=== PATIENT | male | born 1985 | race Caucasian/White ===

== ENCOUNTER 2021-08-06 10:38 | Emergency (ER) | payer OTHER, SELFPAY ==
--- NOTE | ~2021-08-06 | XR_ITS ---
EXAMINATION: XR chest 2V EXAM DATE: 08/06/2021 12:21 INDICATION: Hypoglycemia, Diabetes Type I . TECHNIQUE: Frontal and lateral projections of the chest obtained and reviewed. Comparison is made to prior examination from 08/06/2021. FINDINGS: The lungs are clear. There are no pleural effusions. The cardiomediastinal silhouette is within normal limits. There is no pneumothorax suspected. The bones and soft tissues are unremarkab le. IMPRESSION: No acute cardiopulmonary findings. Reviewed, dictated and finalized at location A.
[2021-08-06 10:38] VITALS: BP 179/95; PULSE 68; RESP 18; TEMP 37; O2SAT 100
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
[2021-08-06 11:50] LABS: Basophils Absolute Auto 0.1 K/mm3 (0.0-0.1); Basophils Percent Auto 0.5 % (0.2-1.2); Eosinophils Absolute Auto 0.2 K/mm3 (0-0.3); Eosinophils Percent Auto 0.8 % (0-4.4); Hematocrit 47.3 % (42.0-52.0); Hemoglobin 16.2 g/dL (14.0-18.0); Immature Granulocyte Absolute 0.14 K/mm3 (0.00-0.031); Immature Granulocyte Percent A 0.7 % (0-0.5); Lymphocytes Absolute Auto 2.36 K/mm3 (0.9-3.2); Lymphocytes Percent Auto 12.2 % (18.3-44.2); Mean Corpuscular HGB Conc 34.2 g/dl (32-36); Mean Corpuscular Hemoglobin 30.7 pg (26-34); Mean Corpuscular Volume 89.6 fl (80-100); Mean Platelet Volume 9.6 fl (7.4-10.4); Neutrophils Absolute Auto 15.6 K/mm3 (1.3-6.7); Neutrophils Percent Auto 80.8 % (45.5-73.1); Platelet Count Result 315 k/mm3 (150-375); Red Blood Count 5.28 M/mm3 (4.6-6.20); Red Cell Distribution Width 13.6 % (11.5-14.5); White Blood Count 19.3 K/mm3 (4.5-10.0)
[2021-08-06 11:51] LABS: Add Urine Microscopic? YES; Appearance Urine Clear (Clear); Bilirubin Urine Negative (Negative); Blood Urine Negative (Negative); Color Urine Yellow (Yellow); Glucose Urine UA 3+ mg/dL (Negative); Ketones Urine Negative (Negative); Leukocyte Esterase Ur Negative LEU/UL (Negative); Mucus Urine Rare /lpf; Nitrate Urine Negative (Negative); Protein Urine Negative (Negative); RBC Urine 0-2 /hpf (0-2); Specific Grav Ur 1.015 (1.001-1.035); Squamous Epithelial Cell Urine Rare /hpf (Few); Urobilinogen Urine Negative mg/dL (<2.0); WBC Urine 0-3 /hpf
[2021-08-06 12:07] LABS: Anion Gap 5 mmol/L (8-16); Blood Urea Nitrogen 6 mg/dL (9-20); Calcium 8.3 mg/dL (8.4-10.2); Carbon Dioxide 31 mmol/L (22-30); Chloride 103 mmol/L (98-107); Estimated CRCL calculation 116 ml/min; Estimated Glomerular Filt Rate > 60; Glucose 233 mg/dL (65-110); Potassium 3.7 mmol/L (3.4-5.0); Sodium 139 mmol/L (137-145)
[2021-08-06 15:20] VITALS: BP 128/74; PULSE 68; RESP 18; O2SAT 100
== END 2021-08-06 15:10 | disposition home or self-care (01) ==
PROVIDERS: Emergency Provider Emergency Medicine
DX: E11.649 Type 2 diabetes mellitus with hypoglycemia without coma (principal)
CPT/HCPCS: 36415; 71046; 80048; 81001; 85025; 99283

== ENCOUNTER 2021-09-08 10:38 | Observation (INO) | payer OTHER, SELFPAY ==
[2021-09-08] VITALS (9 sets, daily range): BP systolic 113–149; BP diastolic 70–88; PULSE 64–96; RESP 14–24; TEMP 36.4; O2SAT 97–100
--- NOTE | ~2021-09-08 | CT_ITS ---
EXAMINATION: CT brain wo con DATE: 09/08/2021 11:53 INDICATION: Stroke. Confusion. TECHNIQUE: Computed tomography (CT) of the head was performed without intravenous contrast. The mA wa s adjusted according to patient size. Iterative reconstruction technique was employed. The dose-lengt h product was 681.00 mGy-cm. 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 There is no intracranial hemorrhage, acute in farction, or abnormal intracranial mass lesion. The ventricles are normal in size. There is a right p osterior scalp hematoma. There is mucosal thickening in the paranasal sinuses. The mastoid air cells are normal. The orbits are normal. IMPRESSION: 1. No acute intracranial pathology. I called this result to Dr. Vidales. Reviewed, dictated and finalized at location A. AIN/AIRLINE PILOT
--- NOTE | ~2021-09-08 | XR_ITS ---
EXAMINATION: XR chest 1V portable DATE: 09/08/2021 12:05 INDICATION: Cerebrovascular accident. TECHNIQUE: A single frontal view of the chest was obtained. COMPARISON: Chest 2 views 08/06/2021 FINDINGS: The chest demonstrates clear lungs without pneumonia, pleural effusion, or pneumothorax. Th e heart size is normal. IMPRESSION: 1. No acute cardiopulmonary disease. Reviewed, dictated and finalized at location A. [facility] [employer]
[2021-09-08] MEDS: ONDANSETRON INJ 4 MG/2 ML VIAL (11:18)
--- NOTE | 2021-09-08 11:45 | ECG_ITS ---
Measurements Intervals Jolon Rate: 72 P: 49 NV: 144 QRS: 74 QRSD: 90 T: 63 QT: 373 QTc: 409 Interpretive Statements SINUS RHYTHM BASELINE ARTIFACT- I, II, III, AVR, AVL, AVF, V1-V6 NORMAL ECG Electronically Signed On 09-08-2021 12:01:52 SENIOR SSIS DEVELOPER by Zuhair Osei D.O.
--- NOTE | 2021-09-08 11:48 | ED.AMS ---
HPI - Altered Mental Status General Chief Complaint: Recheck/Abnormal Lab/Rx Stated Complaint: low blood sugar Time Seen by Provider: 09/08/21 11:17 Source: patient and family Limitations: altered mental status and clinical condition History of Present Illness HPI narrative: 35-year-old male who is apparently an insulin-dependent diabetic His parents went by to see him this morning after apparently his boss called them and told him he was late for work and found him confused and called EMS They apparently found him with a blood sugar of 50 and administered oral glucose and his blood sugar improved to 130 but his mental status did not necessarily improve along with that When I saw him here he had also drank an orange juice but not eaten much else from a food tray and was napping He is easy to wake up but hard to get any coherent history from He cannot say why he is here, cannot describe his medical history or the medications that he takes, cannot identify common objects such as a pen or a cellular phone Related Data Allergies Allergy/AdvReac Type Severity Reaction Status Date / Time No Known Allergies Allergy Verified 09/08/21 11:18 Review of Systems Review of Systems: ROS unobtainable: Yes unobtainable due to mental status Constitutional: Constitutional: Denies fever(s) and Denies headache(s) ENT: Denies headache(s) Cardiovascular: Cardiovascular: Denies dyspnea Respiratory: Respiratory: Denies cough and Denies dyspnea Gastrointestinal: Gastrointestinal: Denies abdominal pain, Denies diarrhea and Denies vomiting Genitourinary: Genitourinary: Denies dysuria and Denies urinary frequency Musculoskeletal: Musculoskeletal: Denies deformity, Denies arthralgias, Denies joint swelling and Denies numbness Integumentary/Breasts: Skin/Breast: Denies rash and Denies wounds Neurologic: Denies headache(s), Denies focal weakness and Denies numbness Psychiatric: Psychiatric: Reports no additional psychiatric complaints Endocrine: Endocrine: Reports no additional endocrine complaints Hematologic/Lymphatic: Hematologic/Lymphatic: Reports no additional hematologic/lymphatic complaints Allergic/Immunologic: Allergic/Immunologic: Reports no additional allergic/immunologic complaints [facility] Past Medical History Medical History (Updated 09/08/21 @ 15:18 by Yousuf Vidales MD) Diabetes Surgical History Surgical History (Updated 08/06/21 @ 11:44 by Vladimir Miranda MD) No pertinent past surgical history Exam Const: General: cooperative, healthy appearing and confusion Other: O x1 HENMT: Head: normal to inspection, normocephalic, atraumatic, no contusions, no hematomas and no lacerations Ears: external ears normal General nose exam: no epistaxis Eyes: Conjunctivae: conjunctivae normal EOM: EOMs intact bilaterally Neck: Neck: normal visual inspection, supple and no JVD Resp: Effort & Inspection: normal respiratory effort and not labored Auscultation: clear to auscultation bilaterally, no rales, no rhonchi, no wheezes and other (BS =) Cardio: Rate: regular rate Rhythm: regular rhythm Heart sounds: no murmurs GI: GI Palp: Yes Soft to palpation, No Tenderness to palpation present (GI), No Guarding due to palpation present (GI) and No Rebound tenderness present Skin: General skin exam: normal color and no rashes or lesions noted Neuro: General: moves all extremities Speech: normal speech Other: Moves equally x4 His speech is clear but generally not coherent, does not seem to follow directions correctly and seems to struggle with expressions as well Extrem: General: normal to inspection and no pedal edema Psych: Affect: normal affect Course Course Emergency Course: Mental status not returned to normal has glucose did, and because of his possible expressive/receptive aphasia he was code stroked but that evaluation was not very fruitful He was started on D10 Interviewed his parents who mentioned th
[2021-09-08] MEDS: DEXTROSE 10% 1,000 ML 50 ML IV CONT (11:54)
[2021-09-08 11:55] LABS: Glucose Point of Care 98 mg/dl (65-105)
[2021-09-08 11:55] LABS: Glucose Point of Care 94 mg/dl (65-105)
[2021-09-08 12:15] LABS: Device ROOM AIR; Fractional Inspired Oxygen 21 %; HCO3 VBG 26.5 mEq/l (24.0-30.0); PCO2 VBG 46.9 mmHg (42.0-48.0); PO2 VBG 25.7 mmHg (35.0-45.0)
[2021-09-08 12:34] LABS: INR 0.9; Prothrombin Time 11.8 Seconds (11.1-14.7)
--- NOTE | 2021-09-08 12:35 | PC.NURSE ---
pt. family member at bedside. reports pt. mumbling and incoherence is not normal.
[2021-09-08 12:37] LABS: Lactic Acid Reflex 1.3 mmol/L (0.7-2.1)
[2021-09-08 12:41] LABS: Beta-Hydroxybutyrate/Acetoacetate 0.45 mmol/L (0.02-0.27)
[2021-09-08 13:13] LABS: Ethanol < 10 mg/dL (<10)
[2021-09-08 13:47] LABS: Basophils Absolute Auto 0.1 K/mm3 (0.0-0.1); Basophils Percent Auto 0.3 % (0.2-1.2); Eosinophils Percent Auto 0.2 % (0-4.4); Hematocrit 47.7 % (42.0-52.0); Hemoglobin 16.8 g/dL (14.0-18.0); Immature Granulocyte Percent A 0.5 % (0-0.5); Lymphocytes Absolute Auto 1.23 K/mm3 (0.9-3.2); Lymphocytes Percent Auto 6.7 % (18.3-44.2); Mean Corpuscular HGB Conc 35.2 g/dl (32-36); Mean Corpuscular Hemoglobin 31.3 pg (26-34); Mean Platelet Volume 9.9 fl (7.4-10.4); Monocytes Absolute Auto 0.6 K/mm3 (0.1-0.6); Monocytes Percent Auto 3.1 % (2.6-8.5); Neutrophils Absolute Auto 16.5 K/mm3 (1.3-6.7); Neutrophils Percent Auto 89.2 % (45.5-73.1); Platelet Count Result 273 k/mm3 (150-375); Red Blood Count 5.36 M/mm3 (4.6-6.20); Red Cell Distribution Width 13.1 % (11.5-14.5); White Blood Count 18.4 K/mm3 (4.5-10.0)
[2021-09-08 13:57] LABS: Alanine Aminotransferase 15 U/L (4-50); Albumin Level 4.3 g/dL (3.5-5.1); Alkaline Phosphatase 82 U/L (38-126); Anion Gap 8 mmol/L (8-16); Aspartate Amino Transferase 24 U/L (17-59); Bilirubin,Total 1.2 mg/dL (0.2-1.3); Blood Urea Nitrogen 6 mg/dL (9-20); Carbon Dioxide 26 mmol/L (22-30); Chloride 100 mmol/L (98-107); Estimated Glomerular Filt Rate > 60; Glucose 215 mg/dL (65-110); Potassium 4.1 mmol/L (3.4-5.0); Sodium 134 mmol/L (137-145)
[2021-09-08 14:00] LABS: Add Urine Microscopic? YES; Appearance Urine Clear (Clear); Bilirubin Urine Negative (Negative); Blood Urine Negative (Negative); Color Urine Yellow (Yellow); Glucose Urine UA 3+ mg/dL (Negative); Ketones Urine 1+ mg/dL (Negative); Leukocyte Esterase Ur Negative LEU/UL (Negative); Mucus Urine Rare /lpf; Nitrate Urine Negative (Negative); Protein Urine Negative (Negative); RBC Urine 0-2 /hpf (0-2); Specific Grav Ur 1.015 (1.001-1.035); Urobilinogen Urine Negative mg/dL (<2.0); WBC Urine 0-3 /hpf
[2021-09-08] MEDS: LACTATED RINGERS 1,000 ML 999 ML IV CONT (14:01)
[2021-09-08 14:21] LABS: Amphetamine Screen Urine Negative (Negative); Barbiturate Screen Urine Negative (Negative); Benzodiazepines Screen Urine Negative (Negative); Cannabinoid Screen Urine Positive (Negative); Cocaine Screen Urine Negative (Negative); Methadone Screen Urine Negative (Negative); Opiate Screen Urine Negative (Negative); Phencyclidine Screen Urine Negative (Negative)
[2021-09-08 15:18] LABS: Glucose Point of Care 217 mg/dl (65-105)
--- NOTE | 2021-09-08 16:11 | PC.NURSE ---
1 amp of dextrose administered ivp prior to ct. VORB ERP Flash
[2021-09-08 17:04] LABS: Glucose Point of Care 181 mg/dl (65-105)
--- NOTE | 2021-09-08 17:30 | PM.IMHP ---
H&P: HPI History of Present Illness Date/Time: 09/08/21 17:30 Chief Complaint: Low blood sugar. Narrative: This is a 35-year-old male with type 1 diabetes mellitus and in lateral disability who presented to the emergency department earlier today via EMS from home for evaluation of low blood sugar. This morning the patient did not show up for work and his boss notified the patient's parents and they went to check on him. Reportedly he was found with decreased levels of consciousness and his glucose at that time was around 50 thus his parents administered oral glucose with a bit of improvement in his mentation. He began vomiting thereafter. On EMS arrival he was administered more oral glucose and he was brought in for evaluation as he seemed confused having difficulties answering questions. In the emergency department he seemed to be confused despite improvement in his glucose and I was asked to admit the patient in this setting. For instance he was having difficulties naming common objects such as a pen for a cellular telephone. The patient was unable to tell me the current year or the name of the president but he goes on to say that he would not normally noted that anyway. At the time my evaluation he admits he has not been feeling great for couple of days but he cannot provide any further information. He has not had any further vomiting since arrival to the hospital and he was able to eat a sandwich without issues. The patient denies headache, vertigo, auditory and visual changes, focal weakness, paresthesias, fever, chills, sweats, cold and flu symptoms, chest pain, shortness of breath, current nausea, vomiting, diarrhea, and dysuria. He has not had any recent injuries or falls. He will on occasion smoked marijuana but has not done so for several days. He denies alcohol and other illicit substance use. Review of Systems Review of Systems: Twelve systems were reviewed with pertinent positives and negatives as per HPI. Except as documented, all other systems were reviewed and are negative. [facility] Past Medical History Medical History (Updated 09/08/21 @ 21:28 by Esmre Coulter PA-C) Intellectual disability Type 1 diabetes mellitus Surgical History Surgical History No pertinent past surgical history Family History Family History (Updated 09/08/21 @ 21:28 by Esmer Coulter PA-C) Other Unknown family medical history Social History Social History (Updated 09/08/21 @ 21:30 by Esmer Coulter PA-C) Social History: Code status: Full code. Smoking packs per day: 1 Smoking cigarettes per day: 20.0 Smoking status: Current every day smoker Tobacco type: cigarettes Second hand tobacco smoke exposure: Yes Alcohol intake: never Substance use: current Substance use type: marijuana Last use: 09/08/21 Additional living arrangements comments: The patient lives in [place] with a roommate. Additional occupation/education comments: Works at [employer] Home Medications and Allergies Home Medications Medication Instructions Recorded Confirmed Type insulin lispro [Admelog U-100 09/08/21 History Insulin lispro] insulin lispro [Admelog U-100 See Protocol [facility] 09/08/21 09/08/21 History Insulin lispro] Allergies Allergy/AdvReac Type Severity Reaction Status Date / Time No Known Allergies Allergy Verified 09/08/21 18:21 Vital Signs Vital Signs - 24 hr 09/08/21 10:41 09/08/21 11:00 09/08/21 11:58 Pulse Rate 68 73 74 Respiratory Rate 14 14 24 H Blood Pressure 113/84 148/79 H 149/79 H Pulse Oximetry 100 100 99 09/08/21 13:27 09/08/21 14:00 09/08/21 15:00 Pulse Rate 77 77 96 Respiratory Rate 15 16 15 Blood Pressure 128/71 144/85 H 131/88 Pulse Oximetry 100 99 97 Exam Narrative: General: Well-developed male in the semi-Goodrich position in bed in no distress. HEENT: Normocephalic, atraumatic.
--- NOTE | 2021-09-08 18:01 | PC.NURSE ---
This patient, Booker Shane, was admitted to [facility] Surg Room 325-01 at 1754. Patient/family oriented to hospital policies and general routines including ID bracelet, bed and alarms, visiting hours, pain management, procedures, bathroom and other care routines, personal items, smoking policy, room service/diet, and visiting hours. Information on how to activate the Rapid Response Team has been discussed. Patient/Family are encouraged to report perceived risks to care and to ask questions if they do not understand what they are told or what they should do.
[2021-09-08 18:21] LABS: Glucose Point of Care 118 mg/dl (65-105)
[2021-09-08 19:56] LABS: Glucose Point of Care 224 mg/dl (65-105)
--- NOTE | 2021-09-08 21:50 | PC.NURSE ---
Per Father Manuel: insulin pump basal rate as follows 12a-5a=1.3 units 5a-12p =1.25 units 12p-7p =1.5 units 7p-12a = 1.1 units
[2021-09-08 22:02] LABS: Hemoglobin A1C 7.2 % (<5.7)
[2021-09-09 00:15] LABS: Glucose Point of Care 86 mg/dl (65-105)
[2021-09-09] MEDS: DEXTROSE 50% 25 GM/50 ML SYRINGE IV PUSH ×2 (00:42→06:35)
[2021-09-09 01:05] LABS: Glucose Point of Care 144 mg/dl (65-105)
[2021-09-09 01:05] LABS: Glucose Point of Care 46 mg/dl (65-105)
[2021-09-09] MEDS: DEXTROSE 5%/0.9% SOD CHL 1,000 ML 50 ML IV CONT (01:37)
[2021-09-09 02:23] LABS: Glucose Point of Care 155 mg/dl (65-105)
[2021-09-09 03:56] LABS: Glucose Point of Care 91 mg/dl (65-105)
[2021-09-09 05:33] VITALS: BP 127/74; PULSE 60; RESP 18; TEMP 36.4; O2SAT 100
[2021-09-09 06:32] LABS: Basophils Absolute Auto 0.1 K/mm3 (0.0-0.1); Eosinophils Absolute Auto 0.7 K/mm3 (0-0.3); Eosinophils Percent Auto 6.2 % (0-4.4); Hematocrit 44.3 % (42.0-52.0); Hemoglobin 15.3 g/dL (14.0-18.0); Immature Granulocyte Absolute 0.04 K/mm3 (0.00-0.031); Immature Granulocyte Percent A 0.3 % (0-0.5); Lymphocytes Absolute Auto 3.49 K/mm3 (0.9-3.2); Lymphocytes Percent Auto 30.2 % (18.3-44.2); Mean Corpuscular HGB Conc 34.5 g/dl (32-36); Mean Corpuscular Hemoglobin 30.3 pg (26-34); Mean Corpuscular Volume 87.7 fl (80-100); Mean Platelet Volume 9.5 fl (7.4-10.4); Monocytes Percent Auto 8.5 % (2.6-8.5); Neutrophils Absolute Auto 6.2 K/mm3 (1.3-6.7); Neutrophils Percent Auto 53.8 % (45.5-73.1); Platelet Count Result 286 k/mm3 (150-375); Red Blood Count 5.05 M/mm3 (4.6-6.20); Red Cell Distribution Width 13.1 % (11.5-14.5); White Blood Count 11.6 K/mm3 (4.5-10.0)
[2021-09-09 06:50] LABS: Anion Gap 5 mmol/L (8-16); Blood Urea Nitrogen 7 mg/dL (9-20); Calcium 8.9 mg/dL (8.4-10.2); Carbon Dioxide 29 mmol/L (22-30); Chloride 107 mmol/L (98-107); Estimated Glomerular Filt Rate > 60; Glucose 38 mg/dL (65-110); Magnesium 1.7 mg/dL (1.6-2.3); Potassium 3.7 mmol/L (3.4-5.0); Sodium 141 mmol/L (137-145)
[2021-09-09 08:14] LABS: Glucose Point of Care 115 mg/dl (65-105)
[2021-09-09 08:14] LABS: Glucose Point of Care 33 mg/dl (65-105)
[2021-09-09 08:14] LABS: Glucose Point of Care 183 mg/dl (65-105)
[2021-09-09 08:14] LABS: Glucose Point of Care 37 mg/dl (65-105)
[2021-09-09 08:35] LABS: Glucose Point of Care 191 mg/dl (65-105)
[2021-09-09 08:56] LABS: Thyroid Stimulating Hormone Reflex 0.977 uIU/mL (0.465-4.68)
[2021-09-09 10:02] LABS: Glucose Point of Care 245 mg/dl (65-105)
[2021-09-09 12:02] LABS: Glucose Point of Care 190 mg/dl (65-105)
--- NOTE | 2021-09-09 12:07 | PM.IMPN ---
Progress Note: A&P Assessment and Plan (1) Altered mental status: Code(s): R41.82 - Altered mental status, unspecified Status: Acute Assessment and Plan: Initially attributed to hypoglycemia however he still seemed to be confused after his glucose normalized Likely prolonged hypo glycemia episode Currently extremely agitated but oriented Father does report that the patient has a low IQ with intellectual disability. (2) Hypoglycemia: Code(s): E16.2 - Hypoglycemia, unspecified Status: Acute Assessment and Plan: Resolved. On D 5 will slowly taper off (3) Type 1 diabetes mellitus: Code(s): E10.9 - Type 1 diabetes mellitus without complications Status: Acute Assessment and Plan: Patient has an insulin pump however it is not in his possession at this time. Settings acquired he takes basal insulin about 30 units a day With hypoglycemia will lower the rate and give a dose of Lantus 10 units and trend his blood sugar today (4) Leukocytosis: Code(s): D72.829 - Elevated white blood cell count, unspecified Status: Acute Assessment and Plan: Presumably a stress response as he gives no history to suggest infection. Physical exam was unremarkable. Leukocytosis is resolving Subjective Date/time seen: 09/09/21 12:07 Interval history: Very mad and aggravated as the IV line is beeping constantly. Denies any complaints regarding abdominal pain nausea vomiting no fever chills Review of Systems Review of Systems: All systems reviewed & are unremarkable except as noted in HPI and below (HPI) Exam Narrative: General: Well-developed male, in no distress. HEENT: Normocephalic, atraumatic. PERRL, EOMI. Sclerae anicteric. Tacky mucous membranes. Neck: Supple.non tender Respiratory: Lungs are clear to auscultation bilaterally. No respiratory distress Cardiovascular: Regular rate and rhythm with S1-S2. Gastrointestinal: Abdomen is soft, nontender, and nondistended with positive bowel sounds. Skin: Warm and dry. No rash or lesions on limited exam. Extremities: No cyanosis, clubbing, or edema. Radial and pedal pulses intact. Neurological: Alert and oriented x3 no focal neurological deficits Psychiatric: Aggravated mood agitated at times Objective Data Vital Signs Vital Signs: Vital Signs - 24 hr 09/08/21 13:27 09/08/21 14:00 09/08/21 15:00 Temperature Pulse Rate 77 77 96 Respiratory Rate 15 16 15 Blood Pressure 128/71 144/85 H 131/88 Pulse Oximetry 100 99 97 09/08/21 16:00 09/08/21 17:00 09/08/21 21:45 Temperature 97.6 F Pulse Rate 64 69 74 Respiratory Rate 18 15 18 Blood Pressure 137/86 140/79 126/70 Pulse Oximetry 100 98 100 09/09/21 05:33 Temperature 97.6 F Pulse Rate 60 Respiratory Rate 18 Blood Pressure 127/74 Pulse Oximetry 100 Intake/Output Intake/Output: Intake & Output 09/06/21 09/07/21 09/08/21 09/09/21 23:59 23:59 23:59 23:59 Intake Total 1000 580 Balance 1000 580 Meds/Results Medications: Active Medications Generic Name Dose Route Start Last Admin Trade Name Freq PRN Reason Stop Dose Admin Acetaminophen 650 mg 09/08/21 15:04 Acetaminophen 325 Mg Tablet PO Q4H PRN Mild Pain (1-3) or Fever Dextrose 12.5 gm 09/08/21 15:04 09/09/21 06:35 Dextrose 50% 25 Gm/50 Ml Syringe IV PUSH 12.5 gm PRN PRN Administration Hypoglycemia Protocol Glucagon 1 mg 09/08/21 15:04 Glucagon For Inj 1 Mg Vial IM PRN PRN Hypoglycemia Protocol Glucose 15 gm 09/08/21 15:04 Glucose Oral Gel 15 Gm Of Glucse In 37.5 Gm Tube PO PRN PRN Hypoglycemia Protocol Dextrose 1,000 mls @ 100 mls/hr 09/08/21 15:04 Dextrose 5% 1,000 Ml IVPB PRN PRN Hypoglycemia Protocol Dextrose/Sodium Chloride 1,000 mls @ 50 mls/hr 09/09/21 01:25 09/09/21 01:37 Dextrose 5% Sodium Chloride 0.9% IV CONT 50 mls/hr .Q20H ALEJANDRA Admi
--- NOTE | 2021-09-09 12:17 | WPDNEURCNPN ---
Assessment and Plan Additional Plan 1. Insulin-dependent diabetes mellitus 2. Hypoglycemia with encephalopathy 3. Obtain the EEG to rule out the possibility of seizures which is extremely unlikely Consult date: 09/09/21 HPI: Booker Shane is a 35 year old male admitted to the hospital for hypoglycemia in addition to the ongoing diagnosis of type 1 diabetes mellitus patient brought to the emergency room via EMS from home with information that in the morning he did not show up for work his boss notified the patient's parents and they went to check on him and he was found with decreased level of consciousness and at that time his glucose was only 50 parents gave him the oral glucose and brought him to the emergency room he did vomit on EMS arrival he was admitted more oral glucose and was brought in for the further evaluation he was noted leak confused when he came to the ER and subsequently remained confused for a while, does have underlying intellectual disability with type 1 diabetes mellitus and is currently everyday smoker though he does not drink alcohol also he is on insulin Review of Systems Review of Systems: All systems reviewed & are unremarkable except as noted in HPI and below PMFSH Past Medical History Medical History Intellectual disability Type 1 diabetes mellitus Surgical History Surgical History No pertinent past surgical history Family History Family History Other Unknown family medical history Social History Social History Social History: Code status: Full code. Smoking packs per day: 1 Smoking cigarettes per day: 20.0 Smoking status: Current every day smoker Tobacco type: cigarettes Second hand tobacco smoke exposure: Yes Alcohol intake: never Substance use: current Substance use type: marijuana Last use: 09/08/21 Additional living arrangements comments: The patient lives in [place] with a roommate. Additional occupation/education comments: Works at [employer]. Meds Home Medications and Allergies Home Medications Medication Instructions Recorded Confirmed Type insulin lispro [Admelog U-100 09/08/21 History Insulin lispro] insulin lispro [Admelog U-100 See Protocol SUBCUT ACHS 09/08/21 09/08/21 History Insulin lispro] Allergies Allergy/AdvReac Type Severity Reaction Status Date / Time No Known Allergies Allergy Verified 09/08/21 18:21 Vital Signs Vital Signs - 24 hr 09/08/21 13:27 09/08/21 14:00 09/08/21 15:00 Temperature Pulse Rate 77 77 96 Respiratory Rate 15 16 15 Blood Pressure 128/71 144/85 H 131/88 Pulse Oximetry 100 99 97 09/08/21 16:00 09/08/21 17:00 09/08/21 21:45 Temperature 36.4 C Pulse Rate 64 69 74 Respiratory Rate 18 15 18 Blood Pressure 137/86 140/79 126/70 Pulse Oximetry 100 98 100 09/09/21 05:33 Temperature 36.4 C Pulse Rate 60 Respiratory Rate 18 Blood Pressure 127/74 Pulse Oximetry 100 Exam Narrative: examination today revealed him to be awake alert cooperative he was able to follow the verbal commands appropriately his speech was not dysphasic not dysarthric not dysphonic head was normocephalic with no cranial bruit ear nose throat exam was normal neck was supple with no cervical bruit no thyromegaly no lymphadenopathy heart was regular with no murmur lungs were clear to auscultation with no rhonchi or crepitation abdomen was soft nontender with no hepatosplenomegaly neurological examination revealed him to be awake alert oriented x3 he was able to follow the verbal commands appropriately his speech was not dysphasic no dysarthric not dysphonic pupils round regular feels the vision full extraocular muscle full face symmetrical tongue midline motor examination revealed him to have normal strength an
[2021-09-09 14:19] LABS: Glucose Point of Care 246 mg/dl (65-105)
[2021-09-09 14:42] VITALS: BP 133/72; PULSE 71; RESP 18; TEMP 37.3; O2SAT 99
[2021-09-09 17:10] LABS: Glucose Point of Care 267 mg/dl (65-105)
[2021-09-09] MEDS: INSULIN GLARGINE (*BKC) 100 UNITS/ML 10 UNITS SUB-Q (17:39)
[2021-09-09] MEDS: INSULIN ASPART (*BKC) 100 UNITS/ML SUB-Q (17:40)
[2021-09-09 22:00] VITALS: BP 129/62; PULSE 62; RESP 16; TEMP 37.6; O2SAT 98
[2021-09-09 22:36] LABS: Glucose Point of Care 365 mg/dl (65-105)
[2021-09-09] MEDS: INSULIN ASPART (*BKC) 100 UNITS/ML 10 UNITS SUB-Q (23:01)
[2021-09-10 02:22] LABS: Glucose Point of Care 112 mg/dl (65-105)
[2021-09-10 06:00] VITALS: BP 116/73; PULSE 65; RESP 16; TEMP 36.4; O2SAT 100
[2021-09-10 06:11] LABS: Glucose Point of Care 55 mg/dl (65-105)
[2021-09-10 06:47] LABS: Basophils Absolute Auto 0.1 K/mm3 (0.0-0.1); Basophils Percent Auto 1.3 % (0.2-1.2); Eosinophils Absolute Auto 0.8 K/mm3 (0-0.3); Eosinophils Percent Auto 8.3 % (0-4.4); Hematocrit 47.2 % (42.0-52.0); Hemoglobin 16.3 g/dL (14.0-18.0); Immature Granulocyte Absolute 0.03 K/mm3 (0.00-0.031); Immature Granulocyte Percent A 0.3 % (0-0.5); Lymphocytes Absolute Auto 3.46 K/mm3 (0.9-3.2); Lymphocytes Percent Auto 36.7 % (18.3-44.2); Mean Corpuscular HGB Conc 34.5 g/dl (32-36); Mean Corpuscular Hemoglobin 30.4 pg (26-34); Mean Corpuscular Volume 87.9 fl (80-100); Monocytes Absolute Auto 0.9 K/mm3 (0.1-0.6); Monocytes Percent Auto 9.4 % (2.6-8.5); Neutrophils Absolute Auto 4.2 K/mm3 (1.3-6.7); Platelet Count Result 270 k/mm3 (150-375); Red Blood Count 5.37 M/mm3 (4.6-6.20); Red Cell Distribution Width 12.6 % (11.5-14.5); White Blood Count 9.4 K/mm3 (4.5-10.0)
[2021-09-10 06:49] LABS: Glucose Point of Care 195 mg/dl (65-105)
[2021-09-10 07:02] LABS: Alanine Aminotransferase 14 U/L (4-50); Albumin Level 4.1 g/dL (3.5-5.1); Alkaline Phosphatase 71 U/L (38-126); Anion Gap 7 mmol/L (8-16); Aspartate Amino Transferase 21 U/L (17-59); Blood Urea Nitrogen 14 mg/dL (9-20); Calcium 9.1 mg/dL (8.4-10.2); Carbon Dioxide 28 mmol/L (22-30); Chloride 103 mmol/L (98-107); Estimated Glomerular Filt Rate > 60; Glucose 64 mg/dL (65-110); Potassium 3.7 mmol/L (3.4-5.0); Sodium 138 mmol/L (137-145)
[2021-09-10 08:18] LABS: Glucose Point of Care 271 mg/dl (65-105)
[2021-09-10] MEDS: INSULIN ASPART (*BKC) 100 UNITS/ML SUB-Q ×2 (08:30→12:38)
[2021-09-10 12:18] LABS: Glucose Point of Care 415 mg/dl (65-105)
[2021-09-10 12:18] LABS: Glucose Point of Care 433 mg/dl (65-105)
[2021-09-10 15:39] VITALS: BP 142/77; PULSE 64; RESP 20; TEMP 36.9; O2SAT 97
[2021-09-10 15:49] LABS: Glucose Point of Care 331 mg/dl (65-105)
[2021-09-10] MEDS: INSULIN GLARGINE (*BKC) 100 UNITS/ML 12 UNITS SUB-Q (15:51)
--- NOTE | 2021-09-10 16:13 | PM.DS ---
DS: Admitting Diagnosis Discharge Date 09/10/2021 Admitting Diagnosis Hypoglycemia DS: Discharge Diagnosis Discharge Diagnosis (1) Altered mental status: Code(s): R41.82 - Altered mental status, unspecified Status: Acute Assessment and Plan: Initially attributed to hypoglycemia however he still seemed to be confused after his glucose normalized Likely prolonged hypo glycemia episode which later normalized and was back to normal self by the time of discharge Father does report that the patient has a low IQ with intellectual disability. CT head was negative (2) Hypoglycemia: Code(s): E16.2 - Hypoglycemia, unspecified Status: Acute Assessment and Plan: Resolved. He was on Omnipod. 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 He was hypoglycemic on current Omnipod dosing which he still had while he was hospitalized. His Omnipod was discontinued and was placed on dextrose infusion to keep his blood sugar up. After his Omnipod was discontinued he started getting hyperglycemic. He was started back on his insulin with long-acting insulin as he is type 1 diabetic (3) Type 1 diabetes mellitus: Code(s): E10.9 - Type 1 diabetes mellitus without complications Status: Acute Assessment and Plan: Patient has been on insulin pump prior to admission. Settings acquired he takes basal insulin approximately 30 units a day With hypoglycemia his Omnipod was discontinued and switched him to basal bolus insulin He got Lantus 10 units on 09/09/2021. Will slightly increase it to 12 units on 09/10/2021 and will continue this as home He is fairly insulin sensitive and held it is will be cautious to avoid any hypoglycemia. He is advised to continue Lantus 12 units every p.m. and sliding scale Humalog with meals as previously prescribed He is advised to contact Dr. Parikh after discharge to follow up with her and restart his Omnipod with new settings. He verbalized understanding (4) Leukocytosis: Code(s): D72.829 - Elevated white blood cell count, unspecified Status: Acute Assessment and Plan: Presumably a stress response as he gives no history to suggest infection. Physical exam was unremarkable. Leukocytosis resolved DS: Summary Hospital Course Hospital Course: See above Time Spent with Patient Time attestation: Total time spent providing and/or coordinating discharge services: 50 minutes Exam Narrative: General: Well-developed male, in no distress. HEENT: Normocephalic, atraumatic. PERRL, EOMI. Sclerae anicteric. Tacky mucous membranes. Neck: Supple.non tender Respiratory: Lungs are clear to auscultation bilaterally. No respiratory distress Cardiovascular: Regular rate and rhythm with S1-S2. Gastrointestinal: Abdomen is soft, nontender, and nondistended with positive bowel sounds. Skin: Warm and dry. No rash or lesions on limited exam. Extremities: No cyanosis, clubbing, or edema. Radial and pedal pulses intact. Neurological: Alert and oriented x3 no focal neurological deficits Psychiatric: Aggravated mood agitated at times DS: Data Data Completed and Pending Labs on day of discharge: Labs from last 24 hours 09/10/21 09/10/21 09/10/21 15:43 12:00 11:57 WBC RBC Hgb Hct MCV MCH MCHC RDW Plt Count MPV Immature Gran % (Auto) Neut % (Auto) Lymph % (Auto) [place] % (Auto) Eos % (Auto) Baso % (Auto) Lymph # (Auto) [place] # (Auto) Eos # (Auto) Baso # (Auto) Abs Immat Gran (auto) Absolute Neuts (auto) Absolute Nucleated RBC Nucleated RBC % Sodium Potassium Chloride Carbon Dioxide Anion Gap BUN Creatinine Estim Creat Clear Calc Estimated GFR Glucose POC Capillary Glucose 331 H 415 H 433 H Calcium Total Bilirubin AST ALT Alkaline Phosphatase Total Protein Albumin
[2021-09-10 16:31] LABS: Glucose Point of Care 393 mg/dl (65-105)
== END 2021-09-10 17:05 | disposition home or self-care (01) ==
LOC: ANHED 15:19 → ANH3MEDSUR 09-09 10:07
PROVIDERS: Physician Assistant; Admitting Provider Internal Medicine; Emergency Provider Emergency Medicine; Visit Provider Internal Medicine
DX: E10.649 Type 1 diabetes mellitus with hypoglycemia without coma (principal); G93.41 Metabolic encephalopathy; D72.829 Elevated white blood cell count, unspecified; F79 Unspecified intellectual disabilities; F17.210 Nicotine dependence, cigarettes, uncomplicated; Z23 Encounter for immunization; Z96.41 Presence of insulin pump (external) (internal); Z79.899 Other long term (current) drug therapy
CPT/HCPCS: 36415; 70450; 71045; 80048; 80053; 80307; 81001; 82010; 82803; 82948; 83036; 83605; 83735; 84443; 84484; 85025; 85610; 90471; 90653; 93005; 96361; 96365; 96366; 96375; 99285; G0008; G0378; G0379; J1815; J2405; J7042; J7120

== ENCOUNTER 2022-03-02 13:20 | Emergency (ER) | payer OTHER, SELFPAY ==
[2022-03-02 13:29] VITALS: BP 128/80; PULSE 78; RESP 16; TEMP 37.2; O2SAT 99
--- NOTE | 2022-03-02 13:38 | ED.NAVMDI ---
HPI - Nausea/Vomiting/Diarrhea General Chief complaint: Nausea/Vomiting/Diarrhea Stated complaint: Headache,Throwing Up Time Seen by Provider: 03/02/22 13:38 Source: patient Mode of arrival: ambulatory Limitations: no limitations History of Present Illness HPI Narrative: 36-year-old male presents with complaint of headache, nausea vomiting that started this morning. Reports that he had headache prior to going into work. Took 3 ibuprofen on empty stomach and then vomited several times. His boss made him leave work. He reports that he still is slightly nauseated and still has headache. No vision changes. Ambulatory with steady gait. No history of migraines. Patient is type I diabetic. States his blood sugar was 70 prior to arrival ate a yogurt. No history of DKA. All systems reviewed and negative except as noted above. Related Data Home Medications Medication Instructions Recorded Confirmed insulin lispro [Admelog U-100 1 unit SUBCUT DIRECTED 09/08/21 03/02/22 Insulin lispro] insulin pump cart,cont inf,BT 03/02/22 03/02/22 [Omnipod Dash Pods (Gen 4)] lisinopril 10 mg PO DAILY 03/02/22 03/02/22 Allergies Allergy/AdvReac Type Severity Reaction Status Date / Time No Known Allergies Allergy Verified 03/02/22 13:32 Review of Systems Review of Systems: CONSTITUTIONAL: Denies fever, chills, or sweats. EYES: Denies visual changes, redness, or discharge. ENT: Denies rhinorrhea, congestion, sore throat, or otalgia. CARDIOVASCULAR: Denies chest pain, palpitations, or edema. RESPIRATORY: Denies cough or dyspnea. GASTROINTESTINAL: Denies abdominal pain. Reports nausea, vomiting. Denies diarrhea. GENITOURINARY: Denies dysuria or hematuria. SKIN: Denies rash or itching. MUSCULOSKELETAL: Denies back pain, joint pain, or myalgia. NEUROLOGIC: Reports headache. Today numbness, or weakness. PSYCHIATRIC: Denies anxiety or depression. All other systems reviewed are negative, except as documented in HPI. [facility] Past Medical History Medical History Intellectual disability Type 1 diabetes mellitus Surgical History Surgical History No pertinent past surgical history Family History Family History Other Unknown family medical history Social History Social History Social History: Code status: Full code. Smoking packs per day: 1 Smoking cigarettes per day: 20.0 Smoking status: Current every day smoker Tobacco type: cigarettes Second hand tobacco smoke exposure: Yes Alcohol intake: never Substance use: current Substance use type: marijuana Last use: 09/08/21 Additional living arrangements comments: The patient lives in [place] with a roommate. Additional occupation/education comments: Works at [employer]. Comments At time of signature, agree with nursing past medical, surgical, social and family history. There is no relevant family history pertinent to the presenting complaint. Exam Narrative: GENERAL: This is a well-nourished, well-developed patient, in no apparent distress. HEAD: normocephalic, atraumatic. EYES: PERRL. Sclera clear/white. Vision is grossly intact. EARS: External ears normal, auditory canals clear and without drainage, TMs normal without perforation. Hearing grossly intact. NOSE: External nose normal with no obvious nasal discharge, nares without redness, no rhinorrhea. THROAT: Mucous membranes moist, posterior pharynx clear. NECK: Neck supple, non-tender without lymphadenopathy, masses or thyromegaly. CARDIOVASCULAR: Regular rate and rhythm without murmurs, gallops, or rubs. RESPIRATORY: Clear to auscultation. Breath sounds equal bilaterally. No wheezes, rales, or rhonchi. GASTROINTESTINAL: Abdomen soft, non-tender, nondistended. Bowel sounds are active. No hepato-spl
[2022-03-02] MEDS: KETOROLAC (*BKC) 60 MG/2 ML VIAL IM (13:50)
[2022-03-02] MEDS: ONDANSETRON HCL ODT 4 MG TABLET SUBLINGUAL (13:50)
--- NOTE | 2022-03-02 13:54 | PC.NURSE ---
1352--accucheck is 168mg/dl
[2022-03-02 13:59] LABS: Glucose Point of Care 168 mg/dl (65-105)
== END 2022-03-02 14:14 | disposition home or self-care (01) ==
PROVIDERS: Emergency Provider Nurse Practitioner Family; PCP Family Medicine
DX: R51.9 Headache, unspecified (principal); F17.210 Nicotine dependence, cigarettes, uncomplicated; F79 Unspecified intellectual disabilities; E10.9 Type 1 diabetes mellitus without complications; Z96.41 Presence of insulin pump (external) (internal)
CPT/HCPCS: 82948; 96372; 99213; A9270; G0463; J1885

== ENCOUNTER 2022-10-27 12:31 | Emergency (ER) | payer OTHER, SELFPAY ==
--- NOTE | ~2022-10-27 | XR_ITS ---
EXAMINATION: XR chest 1V portable DATE: 10/27/2022 14:59 INDICATION: Altered mental status. TECHNIQUE: A single frontal view of the chest was obtained. COMPARISON: Chest single view 09/08/2021 FINDINGS: The chest demonstrates clear lungs without pneumonia, pleural effusion, or pneumothorax. Th e heart size is normal. IMPRESSION: 1. No acute cardiopulmonary disease. Reviewed, dictated and finalized at location A. [employer]ER
--- NOTE | 2022-10-27 12:43 | ECG_ITS ---
Measurements Intervals [place] Rate: 73 P: 57 OK: 164 QRS: 74 QRSD: 75 T: 59 QT: 361 QTc: 399 Interpretive Statements SINUS RHYTHM BASELINE ARTIFACT- I, II, III, AVR, AVL, AVF, V1-V4 NORMAL ECG NO PREVIOUS ECG AVAILABLE FOR COMPARISON Electronically Signed On 10-27-2022 14:29:15 [employer]NUCKLE BENDER by Zuhair Osei D.O.
[2022-10-27 12:45] LABS: Glucose Point of Care 173 mg/dl (65-105)
[2022-10-27] MEDS: NALOXONE HCL 0.4 MG/ML VIAL IV PUSH (12:56)
[2022-10-27 13:00] VITALS: BP 148/95; PULSE 85; RESP 14; O2SAT 98
[2022-10-27 13:12] LABS: Basophils Absolute Auto 0.1 K/mm3 (0.0-0.1); Basophils Percent Auto 0.9 % (0.2-1.2); Eosinophils Absolute Auto 0.3 K/mm3 (0-0.3); Eosinophils Percent Auto 3.3 % (0-4.4); Hematocrit 45.8 % (42.0-52.0); Hemoglobin 15.6 g/dL (14.0-18.0); Immature Granulocyte Absolute 0.03 K/mm3 (0.00-0.031); Immature Granulocyte Percent A 0.3 % (0-0.5); Lymphocytes Absolute Auto 2.12 K/mm3 (0.9-3.2); Lymphocytes Percent Auto 24.1 % (18.3-44.2); Mean Corpuscular HGB Conc 34.1 g/dl (32-36); Mean Corpuscular Hemoglobin 29.9 pg (26-34); Mean Corpuscular Volume 87.9 fl (80-100); Mean Platelet Volume 10.4 fl (7.4-10.4); Monocytes Absolute Auto 0.6 K/mm3 (0.1-0.6); Monocytes Percent Auto 7.2 % (2.6-8.5); Neutrophils Absolute Auto 5.7 K/mm3 (1.3-6.7); Neutrophils Percent Auto 64.2 % (45.5-73.1); Platelet Count Result 342 k/mm3 (150-375); Red Blood Count 5.21 M/mm3 (4.6-6.20); Red Cell Distribution Width 12.9 % (11.5-14.5); White Blood Count 8.8 K/mm3 (4.5-10.0)
[2022-10-27] MEDS: SODIUM CHLORIDE 0.9% IV 1,000 ML 999 ML IV CONT (13:12)
[2022-10-27] MEDS: NALOXONE HCL INJ 2 MG/2 ML AMP 1 MG IV PUSH (13:21)
--- NOTE | 2022-10-27 13:22 | PC.NURSE ---
Pt. awake and alert however refusing to answer questions. Pt. only state he has to pee. Pt. appears more awake after first dose of narcan. Pt. vomiting in the trashcan. Pt. will not stay in their bed. ERP notified and aware.
[2022-10-27 13:31] LABS: Alanine Aminotransferase 20 U/L (6-50); Albumin Level 4.2 g/dL (3.5-5.1); Alkaline Phosphatase 75 U/L (38-126); Anion Gap 6 mmol/L (8-16); Aspartate Amino Transferase 31 U/L (17-59); Bilirubin,Total 0.9 mg/dL (0.2-1.3); Blood Urea Nitrogen 6 mg/dL (9-20); Calcium 8.5 mg/dL (8.4-10.2); Carbon Dioxide 27 mmol/L (22-30); Chloride 103 mmol/L (98-107); Estimated CRCL calculation 104 ml/min; Estimated Glomerular Filt Rate > 60; Glucose 156 mg/dL (65-110); Potassium 3.4 mmol/L (3.4-5.0); Sodium 136 mmol/L (137-145)
--- NOTE | 2022-10-27 13:38 | PC.NURSE ---
Pt. pulled IV out
--- NOTE | 2022-10-27 13:45 | PC.NURSE ---
Pt. refusing to stay in room. Pt. getting combative with security, Johnnie DINERO called. Pt. continuing to vomit on floor and refusing to emesis bag or trash can. Pt. will walk into the bathroom and drink out of the sink then vomit shortly afterwards. Pt. informed he not allowed to use the restroom and not allowed to leave the room due to their behavior.
[2022-10-27 13:49] LABS: Glucose Point of Care 97 mg/dl (65-105)
--- NOTE | 2022-10-27 13:49 | ED.AMS ---
HPI - Altered Mental Status General Chief Complaint: Altered Mental Status Stated Complaint: ams, combative Time Seen by Provider: 10/27/22 12:38 History of Present Illness HPI narrative: Patient is a 37-year-old male who presents ER from home combative. Family felt he might be having hypoglycemic episodes so they gave him some glucagon. Patient has history of meth abuse according to EMS she got an alert from their dispatch. Patient seems confused while here. He is awake but trying to get up out of bed and will not follow commands. Patient given some Narcan and he began to have itching of his nose as well as some nausea and vomiting. Related Data Home Medications Medication Instructions Recorded Confirmed insulin lispro 100 unit/mL 1 unit subcut DIRECTED 09/08/21 03/02/22 subcutaneous solution (Admelog U-100 Insulin lispro) insulin pump cart,cont inf,BT 03/02/22 03/02/22 (Omnipod Dash Pods (Gen 4) subcutaneous cartridge) lisinopril 10 mg tablet 10 mg PO DAILY 03/02/22 03/02/22 Allergies Allergy/AdvReac Type Severity Reaction Status Date / Time No Known Allergies Allergy Unverified 10/27/22 13:08 Review of Systems Review of Systems: ROS unobtainable: Yes unobtainable due to medical condition PMFSH Past Medical History Medical History Intellectual disability Type 1 diabetes mellitus Surgical History Surgical History No pertinent past surgical history Family History Family History Other Unknown family medical history Social History Social History Social History: Code status: Full code. Smoking packs per day: 1 Smoking cigarettes per day: 20.0 Smoking status: Current every day smoker Tobacco type: cigarettes Second hand tobacco smoke exposure: Yes Alcohol intake: never Substance use: current Substance use type: marijuana Last use: 09/08/21 Additional living arrangements comments: The patient lives in [place] with a roommate. Additional occupation/education comments: Works at [employer]. Exam Narrative: GENERAL: Confused-appearing, well-nourished, and in mild distress. HEAD: Normocephalic, atraumatic. EYES: PERRL and EOMI. ENT: Mucous membranes moist. CHEST: Clear to auscultation. No respiratory distress. HEART: Regular rate and rhythm. Normal peripheral pulses. ABDOMEN: Soft, nontender, nondistended. EXTREMITIES: Normal range of motion. No edema. SKIN: Warm, dry, no rash. NEURO: Awake and alert but not oriented. Ambulating with a steady gait but no appointments. Course Course Emergency Course: Patient very responsive to Narcan but still not oriented. When you try to obstruct his path to a door he says get the fuck out of my way. Patient eventually moved to room 15 so we could have a more confined space and he would not be potentially placing other patients at risk. Patient then fell asleep. He has had normal blood sugars. He has been drinking OJ. He is now awake alert and oriented x4. He is eating turkey sandwich and is ready to go. I suspect there is a component of drug abuse that cause this episode today. Reevaluation(s) Date: 10/27/22 Time: 13:50 Vital Signs Vital signs: Vital Signs Pulse Rate 85 10/27/22 13:00 Respiratory Rate 14 10/27/22 13:00 Blood Pressure 148/95 H 10/27/22 13:00 Pulse Oximetry 98 10/27/22 13:00 Oxygen Delivery Room Air 10/27/22 13:00 Temperature 98.0 F 10/27/22 15:15 Pulse Rate 74 10/27/22 18:15 Respiratory Rate 20 10/27/22 18:15 Blood Pressure 117/68 10/27/22 18:15 Pulse Oximetry 98 10/27/22 18:15 Oxygen Delivery Room Air 10/27/22 13:00 MDM - Altered Mental Status Lab Data 10/27/22 12:49 10/27/22 12:49 Labs: Lab Results 10/27/22
--- NOTE | 2022-10-27 14:26 | PC.NURSE ---
Pt. unable to urinate at this time. Pt. informed they will be straight cath if they do not pee.
[2022-10-27 14:47] LABS: Glucose Point of Care 82 mg/dl (65-105)
[2022-10-27 15:15] VITALS: BP 120/64; PULSE 74; RESP 20; TEMP 36.7; O2SAT 98
--- NOTE | 2022-10-27 15:18 | PC.NURSE ---
ERP does not want a straight cath at this time
[2022-10-27 16:30] LABS: Glucose Point of Care 78 mg/dl (65-105)
[2022-10-27 17:02] LABS: Add Urine Microscopic? YES; Appearance Urine Clear (Clear); Bilirubin Urine Negative (Negative); Blood Urine Negative (Negative); Color Urine Yellow (Yellow); Glucose Urine UA Negative (Negative); Ketones Urine 2+ mg/dL (Negative); Leukocyte Esterase Ur Negative LEU/UL (Negative); Nitrate Urine Negative (Negative); Protein Urine Negative (Negative); Urobilinogen Urine 0.2 mg/dL (<2.0); pH Urine 8.5 (5.0-9.0)
--- NOTE | 2022-10-27 17:06 | PC.NURSE ---
Pt. is now awake and alert orientated x4. Pt. remembers pulling IV out and vomiting on the floor but denies recalling his aggressive behavior. Pt. unsure why he is at the hospital.
[2022-10-27 17:10] LABS: Mucus Urine Rare /lpf; RBC Urine 0-2 /hpf (0-2); Squamous Epithelial Cell Urine Rare /hpf (Few); WBC Urine 0-3 /hpf
[2022-10-27 17:28] LABS: Amphetamine Screen Urine Negative (Negative); Barbiturate Screen Urine Negative (Negative); Benzodiazepines Screen Urine Negative (Negative); Cannabinoid Screen Urine Positive (Negative); Cocaine Screen Urine Negative (Negative); Methadone Screen Urine Negative (Negative); Opiate Screen Urine Negative (Negative); Phencyclidine Screen Urine Negative (Negative)
[2022-10-27 18:15] VITALS: BP 117/68; PULSE 74; RESP 20; O2SAT 98
[2022-10-27 18:16] LABS: Glucose Point of Care 198 mg/dl (65-105)
== END 2022-10-27 18:51 | disposition home or self-care (01) ==
PROVIDERS: Emergency Provider Emergency Medicine; PCP Family Medicine
DX: R41.0 Disorientation, unspecified (principal); E10.9 Type 1 diabetes mellitus without complications; F79 Unspecified intellectual disabilities; Z79.4 Long term (current) use of insulin; F17.210 Nicotine dependence, cigarettes, uncomplicated
CPT/HCPCS: 36415; 71045; 80053; 80307; 81001; 82948; 85025; 93005; 96361; 96374; 99284; J2310; J7030

== ENCOUNTER 2023-04-04 16:49 | Emergency (ER) | payer OTHER, SELFPAY ==
[2023-04-04] VITALS (14 sets, daily range): BP systolic 137–165; BP diastolic 92–98; PULSE 69–78; RESP 12–24; TEMP 36.8; O2SAT 100
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
[2023-04-04] MEDS: CYCLOBENZAPRINE HCL 10 MG TABLET PO (17:20)
[2023-04-04] MEDS: IBUPROFEN 600 MG TABLET PO (17:20)
== END 2023-04-04 18:31 | disposition home or self-care (01) ==
PROVIDERS: Emergency Provider Physician Assistant; PCP Family Medicine
DX: S46.811A Strain of other muscles, fascia and tendons at shoulder and upper arm level, right arm, initial encounter (principal); E10.9 Type 1 diabetes mellitus without complications; F79 Unspecified intellectual disabilities; F17.210 Nicotine dependence, cigarettes, uncomplicated; Z79.4 Long term (current) use of insulin; V49.40XA Driver injured in collision with unspecified motor vehicles in traffic accident, initial encounter
CPT/HCPCS: 70450; 72125; 73030; 99284; A9270

== ENCOUNTER 2024-02-15 07:14 | Emergency (ER) | payer OTHER, SELFPAY ==
[2024-02-15 07:37] VITALS: BP 156/99; PULSE 92; RESP 16; TEMP 36.7; O2SAT 100
--- NOTE | 2024-02-15 09:25 | ED.EAR ---
HPI - Ear Problem General Chief complaint: Ear Stated complaint: swollen ear canal Time Seen by Provider: 02/15/24 09:07 Source: patient Mode of arrival: ambulatory Limitations: no limitations History of Present Illness HPI Narrative: This is a 38-year-old male with PMH of type 1 diabetes who presents to the ED with chief complaint of right ear canal swelling beginning this morning. Patient states that last night he was feeling fine and has not been ill recently. Reports that there was some drainage from the right ear that started upon arrival to the ED. denies any recent swimming or underwater activity. States that his sugars have been well controlled on his insulin pump. Denies fevers, chills, dysphagia, headache, congestion, sore throat, nausea, vomiting. Related Data Home Medications Medication Instructions Recorded Confirmed insulin lispro 100 unit/mL 1 unit subcut DIRECTED 09/08/21 03/02/22 subcutaneous solution (Admelog U-100 Insulin lispro) insulin pump cart,cont inf,BT 03/02/22 03/02/22 (Omnipod Dash Pods (Gen 4) subcutaneous cartridge) lisinopril 10 mg tablet 10 mg PO DAILY 03/02/22 03/02/22 Allergies Allergy/AdvReac Type Severity Reaction Status Date / Time No Known Allergies Allergy Unverified 04/04/23 16:59 Review of Systems Review of Systems: All systems as dictated in [facility] Past Medical History Medical History Intellectual disability Type 1 diabetes mellitus Surgical History Surgical History No pertinent past surgical history Family History Family History Other Unknown family medical history Social History Social History Social History: Code status: Full code. Smoking packs per day: 1 Smoking cigarettes per day: 20.0 Smoking status: Current every day smoker Tobacco type: cigarettes Second hand tobacco smoke exposure: Yes Alcohol intake: never Substance use: current Substance use type: marijuana Last use: 09/08/21 Additional living arrangements comments: The patient lives in [place] with a roommate. Additional occupation/education comments: Works at [email or web address]. Exam Narrative: GENERAL: Well-appearing, well-nourished, and in no acute distress. HEAD: Normocephalic, atraumatic. EYES: PERRLA and EOMI. ENT: Right ear canal edematous with serosanguineous drainage present. Able to visualize the Right TM which appears intact. left ear is benign. Nares clear, no rhinorrhea or epistaxis. Mucous membranes moist. Oropharynx without tonsillar hypertrophy exudate or other lesions. no mastoid redness or tenderness NECK: Supple. No adenopathy or masses. CHEST: No respiratory distress. Clear to auscultation. No wheezes rales or rhonchi HEART: Regular rate and rhythm. No murmur heard. Normal peripheral pulses. ABDOMEN: Soft, nontender, nondistended, normal active bowel sounds. MSK: Normal range of motion. No edema. SKIN: Warm, dry, no rash. NEURO: Alert and oriented x3. No focal deficits. PSYCH: Normal mood and affect. Course Vital Signs Vital signs: Vital Signs Temperature 98.0 F 02/15/24 07:37 Pulse Rate 92 02/15/24 07:37 Respiratory Rate 16 02/15/24 07:37 Blood Pressure 156/99 H 02/15/24 07:37 Pulse Oximetry 100 02/15/24 07:37 Oxygen Delivery Room Air 02/15/24 07:37 Temperature 98.0 F 02/15/24 07:37 Pulse Rate 92 02/15/24 07:37 Respiratory Rate 16 02/15/24 07:37 Blood Pressure 156/99 H 02/15/24 07:37 Pulse Oximetry 100 02/15/24 07:37 Oxygen Delivery Room Air 02/15/24 07:37 Medical Decision Making [facility] Narrative Medical decision making narrative: This is a 38-year-old male who presents to the ED with chief complaint of right ear pain a
[2024-02-15] MEDS: CIPROFLOXACIN HC OTIC 10 ML 3 DROP RIGHT EAR (09:49)
== END 2024-02-15 10:03 | disposition home or self-care (01) ==
PROVIDERS: Emergency Provider Physician Assistant; PCP Family Medicine
DX: H60.91 Unspecified otitis externa, right ear (principal); E10.9 Type 1 diabetes mellitus without complications; Z79.4 Long term (current) use of insulin; F17.210 Nicotine dependence, cigarettes, uncomplicated
CPT/HCPCS: 99283; A9270